=== PATIENT | female | born 2000 | race Native Hawaiian/Other Pacific Islander ===

== ENCOUNTER 2021-07-24 10:55 | Inpatient (IN) | payer SELFPAY ==
[2021-07-24] MEDS ORDERED: LACTATED RINGERS 1,000 ML IV ONE (13:00)
--- NOTE | 2021-07-24 15:43 | History and Physical Report ---
History of Present Illness Date of examination: 07/24/21 Date of admission: 07/24/21 Chief complaint: Contractions History of present illness: 21 year old female presents to L&D with regular contractions and bloody show. Patient received care at [facility] and records are available. LMP 11/02/20. EDC 07/31/21 (based on 8 week, 4 day US). Patient has had an uncomplicated course except for hyperemesis early in . labs are as follows: O+, antibody screen negative, rubella immune, hepatitis B surface antigen nonreactive, HIV negative, RPR nonreactive, gonorrhea negative, chlamydia negative, pap smear negative, quad screen negative, GBS negative, 1 hour sugar test normal. 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 denies: smoking, alcohol abuse, prescription drug abuse, IV drug use - Obstetrical History Expected Date of Delivery: 07/31/21 Actual Gestation: 39 Week(s) 0 Day(s) : 2 Para: 1 Hx # Term Pregnancies: 1 Number of Pregnancies: 0 Spontaneous Abortions: 0 Induced : 0 Number of Living Children: 1 Medications and Allergies Allergies Allergy/AdvReac Type Severity Reaction Status Date / Time No Known Allergies Allergy Verified 07/24/21 11:43 Home Medications Medication Instructions Recorded Confirmed Last Taken Type One Daily Tablet 1 tab PO DAILY 07/24/21 07/24/21 1 Day Ago History ~07/23/21 Active Meds: Active Medications Acetaminophen (Acetaminophen 325 Mg Tab) 650 mg PO Q4H PRN PRN Reason: Pain, Mild (1-3) Carboprost Tromethamine (Carboprost Tromethamine 250 Mcg/1 Ml Inj) 250 mcg IM ONCE PRN PRN Reason: Uterine Bleeding Ephedrine Sulfate (Ephedrine Sulfate 50 Mg/1 Ml Inj) 10 mg IV Q2M PRN PRN Reason: Hypotension Fentanyl (Fentanyl 100 Mcg/2 Ml Inj) 100 mcg IV Q2H PRN PRN Reason: Pain,Severe (7-10) LABOR PAIN Lactated Ringer's (Lactated Ringers) 1,000 mls @ 125 mls/hr IV DIRECT YAMILKA Oxytocin/Sodium Chloride (Pitocin/Ns 30 Unit/500ml) 30 units in 500 mls @ 40 mls/hr IV TITR YAMILKA; Protocol Lidocaine (Lidocaine (2%) 20 Mg/1 Ml Vial 20 Ml Mdv) 20 ml INFILTRATI ONCE ONE Stop: 07/24/21 16:31 Loperamide HCl (Loperamide 2 Mg Cap) 2 mg PO ONCE PRN PRN Reason: give with Hemabate Methylergonovine Maleate (Methylergonovine Maleate 0.2 Mg/Ml Vial) 0.2 mg IM ONCE PRN PRN Reason: Uterine Bleeding Mineral Oil (Mineral Oil 30 Ml Oral Liqd) 30 ml PO QHS PRN PRN Reason: Constipation Misoprostol (Misoprostol 200 Mcg Tab) 800 mcg VT ONCE PRN PRN Reason: Uterine Bleeding Nalbuphine HCl (Nalbuphine 10 Mg/1 Ml Inj) 10 mg IV Q2H PRN PRN Reason: Pain, Moderate (4-6) Oxytocin (Oxytocin 10 Unit/1 Ml Inj) 10 unit IM ONCE PRN PRN Reason: Uterine Bleeding Terbutaline Sulfate (Terbutaline 1 Mg/1 Ml Inj) 0.25 mg SUB-Q ONCE PRN PRN Reason: Hyperstimulation/Hypertonicity Review of Systems All systems: negative (contractions and bloody show) - Vital Signs Vital signs: Vital Signs Temp Pulse Resp BP Pulse Ox 99.1 F 95 H 14 129/64 100 07/24/21 11:30 07/24/21 11:30 07/24/21 11:30 07/24/21 11:30 07/24/21 11:30 Temp Pulse Resp BP Pulse Ox 99.1 F 99 H 14 129/64 98 07/24/21 11:30 07/24/21 15:32 07/24/21 11:30 07/24/21 11:31 07/24/21 15:32 US shows BPP 8/8, AZRA of 10.6 cm, cephalic presentation, and no lifting or separation of placenta seen. - Physical Exam Abdomen: Positive: normal appearance, soft. Negative: distention, tenderness, guarding, rigidity Genitourinary (Female): Positive: normal external genitalia, normal perenium. Negative: perineal/vulvar lesions Vagina: Positive: other (small amount of bloody show seen) Uterus: Positive: enlarged. Negative: tender Anus/Rectum: Positive: normal perianal skin Extremities: Negative: tenderness, edema - Obstetrical FHR: other FHR comments: FHR baseline 150 with moderate to marked FHR variability and accelerations and occasional brief variable FHR decleration with rapid return to baseline. Cervical Dilatation: 3 (changed from 1 cm to 3 cm in triage) Cervical Effacement Percentage: 80 station: -3 Uterine Contraction Pattern: Regular Uterine Contraction Intensity: Moderate Results All other labs normal. Assessment and Plan A: at 39 weeks gestation. Labor. Variable FHR deceleration. GBS negative. P: Admit. Continuous EFM. Epidural if desired after 4 cm. Anticipate vaginal .
[2021-07-24 15:52] LABS: Hematocrit 35.3 % (30.3-42.9); Hemoglobin 11.8 gm/dl (10.1-14.3); Mean Corpuscular HGB Conc 34 % (30-34); Mean Corpuscular Volume 86 fl (79-97); Platelet Count 265 K/mm3 (140-440); Red Cell Distribution Width 14.1 % (13.2-15.2)
[2021-07-24] MEDS ORDERED: OXYTOCIN DRIP 30 UNITS/500 ML BAG IV SCH ×2 (16:00→19:00)
[2021-07-24] MEDS ORDERED: miSOPROStol 200 MCG TAB PR PRN (16:00)
[2021-07-24] MEDS ORDERED: OXYTOCIN 10 UNIT/1 ML INJ IM PRN (16:00)
[2021-07-24] MEDS ORDERED: MINERAL OIL 30 ML ORAL LIQD PO PRN (16:00)
[2021-07-24] MEDS ORDERED: fentaNYL 100 MCG/2 ML INJ IV PRN (16:00)
[2021-07-24] MEDS ORDERED: LACTATED RINGERS 1,000 ML IV SCH (16:00)
[2021-07-24] MEDS ORDERED: CARBOPROST TROMETHAMINE 250 MCG/1 ML INJ IM PRN (16:00)
[2021-07-24] MEDS ORDERED: METHYLERGONOVINE MALEATE 0.2 MG/ML VIAL IM PRN (16:00)
[2021-07-24] MEDS ORDERED: TERBUTALINE 1 MG/1 ML INJ SUB-Q PRN (16:00)
[2021-07-24] MEDS ORDERED: LOPERAMIDE 2 MG CAP PO PRN (16:00)
[2021-07-24] MEDS ORDERED: ePHEDrine SULFATE 50 MG/1 ML INJ IV PRN (16:00)
[2021-07-24] MEDS ORDERED: NalbUPHINE 10 MG/1 ML INJ IV PRN (16:00)
[2021-07-24] MEDS ORDERED: ACETAMINOPHEN 325 MG TAB PO PRN (16:00)
--- NOTE | 2021-07-24 16:21 | Ultrasound Report ---
ULTRASOUND BIOPHYSICAL PROFILE AND ULTRASOUND OB LIMITED, 07/24/2021 INDICATION / CLINICAL INFORMATION: Evaluate well-being. COMPARISON: No relevant prior studies are available for comparison FINDINGS: BREATHING MOVEMENT = 2 GROSS BODY MOVEMENT = 2 TONE = 2 QUALITATIVE AMNIOTIC FLUID VOLUME = 2 TOTAL BIOPHYSICAL SCORE = 88 AMNIOTIC FLUID INDEX (cm) = 10.6 PRESENTATION: Cephalic. HEART RATE (beats per minute): 135 Placenta is fundal and grade 2. IMPRESSION: 1. biophysical profile = 02/13 Signer Name: Ximena Abdi MD Signed: 07/24/2021 4:17 PM Workstation Name: [id number]
[2021-07-24] MEDS ORDERED: LIDOCAINE (2%) 20 MG/1 ML VIAL 20 ML MDV INFILTRATI ONE (16:30)
--- NOTE | 2021-07-24 18:53 | Event Note ---
Date: 07/24/21 SVE /-3. Pitocin ordered for augmentation of labor.
[2021-07-24] MEDS ORDERED: NALOXONE 2 MG/2 ML INJ IV PRN (21:05)
--- NOTE | 2021-07-24 21:05 | Anesthesia Consultation ---
Anesthesia Consult and Med Hx Date of service: 07/24/21 - Airway Anesthetic Teeth Evaluation: Poor ROM Head & Neck: Adequate Mental/Hyoid Distance: Adequate Mallampati Class: Class II Intubation Access Assessment: Good - Pulmonary Exam CTA: Yes - Cardiac Exam Cardiac Exam: RRR - Pre-Operative Health Status ASA Pre-Surgery Classification: ASA2 Proposed Anesthetic Plan: Epidural - Pulmonary Hx Smoking: No Hx Asthma: No Hx Respiratory Symptoms: No SOB: No COPD: No Home Oxygen Therapy: No Hx Pneumonia: No Hx Sleep Apnea: No - Cardiovascular System Hx Hypertension: No Hx Coronary Artery Disease: No Hx Heart Attack/AMI: No Hx Angina: No Hx Percutaneous Transluminal Coronary Angioplasty (PTCA): No Hx Cardia Arrhythmia: No Hx Pacemaker: No Hx Internal Defibrillator: No Hx Valvular Heart Disease: No Hx Heart Murmur: No Hx Peripheral Vascular Disease: No - Central Nervous System Hx Neuromuscular Disorder: No Hx Seizures: No CVA: No Hx Back Pain: No Hx Psychiatric Problems: No - Gastrointestinal Hx Ulcer: No Hx Gastroesophageal Reflux Disease: No - Endocrine Hx Renal Disease: No Hx End Stage Renal Disease: No Hx Cirrhosis: No Hx Liver Disease: No Hx Insulin Dependent Diabetes: No Hx Non-Insulin Dependent Diabetes: No Hx Thyroid Disease: No Hx Hypothyroidism: No Hx Hyperthyroidism: No - Hematic Hx Anemia: No Hx Sickle Cell Disease: No - Other Systems Hx Alcohol Use: No Hx Substance Use: No Hx Cancer: No Hx Obesity: No
--- NOTE | 2021-07-24 21:36 | Progress Note ---
Labor Epidural - Labor Epidural Start Time: 21:09 Stop Time: 21:23 Performed by:: VIOLET CLEMENT Procedure: Patient is requesting epidural for labor pain. H&P and labs reviewed. Procedure explained, questions answered, consent obtained. Patient placed in sitting position with monitors applied. Timeout performed immediately before start of procedure. Prep/drape in usual sterile fashion. Skin localized 3 mL 1% lidocaine at L[3]-L[4] interspace. 17-gauge Touhy epidural needle advanced to RAMON with saline at [7] cm. No blood/CSF noted via epidural needle. Epidural catheter advanced to [10] cm. Negative aspiration for blood and CSF via catheter, negative response to test dose 3 ml 1.5% lidocaine w/ epi. Sterile dressing applied followed by tape reinforcement. Patient tolerated procedure well. No immediate complications noted.
[2021-07-24] MEDS ORDERED: fentaNYL-BUPIV 2 MCG/ML-0.125% 200 MCG/100 ML BAG EPIDURAL SCH (22:00)
[2021-07-24] MEDS: ePHEDrine SULFATE 50 MG/1 ML INJ IV PRN ×2 (22:09→23:05)
[2021-07-24] MEDS ORDERED: miSOPROStol 100 MCG TAB ONE (23:31)
[2021-07-25] MEDS ORDERED: WITCH HAZEL/ GLYCERIN PAD TP PRN (00:57)
[2021-07-25] MEDS ORDERED: HYDROcodone/ACETAMINOPHEN 5-325 MG TAB PO PRN (00:57)
[2021-07-25] MEDS ORDERED: LANOLIN/ZINC/DIMETHICONE (LANSINOH) 7 GM TP PRN (00:57)
[2021-07-25] MEDS ORDERED: BENZOCAINE/MENTHOL 20/0.5% TOP SPRAY 56 GM TP PRN (00:57)
[2021-07-25] MEDS ORDERED: MAGNESIUM HYDROXIDE (MOM) ORAL LIQD UDC PO PRN (00:57)
[2021-07-25] MEDS ORDERED: diphenhydrAMINE 25 MG CAP PO PRN (00:57)
--- NOTE | 2021-07-25 01:04 | Procedure Note ---
OB Delivery Note - Delivery Date of Delivery: 07/25/21 Surgeon: MEHDI HAGEN Estimated blood loss: other (250 cc) - Vaginal Delivery presentation: vertex Delivery position: OA Intrapartum events: meconium Delivery induction: none Delivery augmentation: pitocin Delivery monitor: external FHT, external uterine Route of delivery: Delivery placenta: spontaneous Delivery cord: 3 umbilical vessels Episiotomy: none Delivery laceration: none Anesthesia: epidural Delivery comments: Spontaneous vaginal delivery at 00:39 of liveborn female weighing 6 lb. 2 oz. over intact perineum with apgars of 8/9. Epidural anesthesia. Meconium stained amniotic fluid; NICU attended delivery due to meconium stained fluid. was atraumatic; no nuchal cord. Baby was placed skin to skin with mom immediately after delivery where she was dried with warm blankets and suctioned with bulb syringe. Spontaneous cry and respirations. 3 vessel cord double clamped and cut and baby taken to radiant warmer for further suctioning. Cord blood obtained. Spontaneous delivery of intact placenta with trailing membranes. EBL 250 cc. Pitocin to IV fluids after delivery of placenta. Cytotec 800 mcg given rectally. Fundus firm and midline at 2 FB below umbilicus. No lacerations noted. Vaginal sweep negative. Sponge count correct. Mother and baby stable in birthing room.
[2021-07-25] MEDS: DOCUSATE SODIUM 100 MG CAP PO SCH ×2 (09:28→22:11)
[2021-07-25] MEDS: IBUPROFEN 600 MG TAB PO SCH ×2 (09:28→22:11)
[2021-07-25] MEDS ORDERED: FERROUS SULFATE 325 MG TAB PO SCH (10:00)
[2021-07-25] MEDS ORDERED: ONDANSETRON 4 MG/2 ML INJ IV PRN (13:07)
[2021-07-25 14:32] LABS: Hematocrit 33.9 % (30.3-42.9); Hemoglobin 11.2 gm/dl (10.1-14.3)
--- NOTE | 2021-07-25 15:06 | Post Anesthesia Evaluation ---
- Post Anesthesia Evaluation Patient Participated: Yes Airway Patent: Yes Stable Respiratory Function: Yes Nausea/Vomiting: No Temp > 96.8F: Yes Pain Manageable: Yes Adequeate Hydration: Yes Anesthesia Complications: No Block Receding Appropriately: Yes Patient on Ventilator: No
[2021-07-26] MEDS: IBUPROFEN 600 MG TAB PO SCH (04:02)
--- NOTE | 2021-07-26 08:24 | Progress Note ---
Assessment and Plan A: S/P P: D/C home today Subjective - Subjective Date of service: 07/26/21 Principal diagnosis: s/p Patient reports: appetite normal, voiding normally, pain well controlled, ambulating normally : doing well, bottle feeding Objective - Vital Signs Latest vital signs: Vital Signs Temp Pulse Resp BP BP Pulse Ox Pulse Ox 07/26/21 04:02 18 07/26/21 00:17 98.1 F 75 20 106/53 96 07/25/21 22:11 18 07/25/21 20:00 99 07/25/21 16:50 98.3 F 68 20 101/66 99 07/25/21 12:00 98.3 F 61 20 110/43 98 07/25/21 09:49 98 07/25/21 08:55 98.3 F 72 20 102/70 97 Intake and Output 07/25/21 07/26/21 07/26/21 22:59 06:59 14:59 Intake Total 440 600 Output Total 900 Balance -460 600 Intake: Oral 440 240 Intake, Free Water 360 Output: Urine 900 Void 900 Other: Total, Intake Amount 120 240 Total, Output Amount 900 # Voids Void 1 1 - Exam Breasts: Present: normal Abdomen: Present: normal appearance, soft, normal bowel sounds Vulva: both: normal Uterus: Present: normal, firm, fundal height below umbilicus Extremities: Present: normal
--- NOTE | 2021-07-26 09:05 | Discharge Summary ---
Providers - Providers Date of Admission: 07/24/21 15:20 Date of discharge: 07/26/21 Attending physician: DAQUAN COFFMAN Primary care physician: [facility] Hospitalization Reason for admission: active labor, IUP at term Delivery: Episiotomy: none Laceration: none Other procedures: none complications: none Discharge diagnosis: IUP at term delivered [place] baby: female Hospital course: Pt presented to [facility] in active labor and had a w/o pp complications. See H&p, delivery summary, and pp notes. Condition at discharge: Stable Disposition: HOME / SELF CARE / HOMELESS Plan - Discharge Medications Prescriptions: Ibuprofen [Motrin 600 MG tab] 600 mg PO Q6HR PRN #30 tablet PRN Reason: Menstrual Cramps - Provider Discharge Summary Activity: routine, no sex for 6 weeks, no heavy lifting 4 weeks, no strenuous exercise Diet: routine Instructions: routine Additional instructions: [] Smoking cessation referral if applicable(refer to patient education folder for contact #) [] Refer to [facility]'s [facility] Booklet Call your doctor immediately for: * Fever > 100.5 * Heavy vaginal bleeding ( >1 pad per hour) * Severe persistent headache * Shortness of breath * Reddened, hot, painful area to leg or breast * Drainage or odor from incision. * Keep incision clean and dry at all times and follow doctor's instructions regarding bathing/showering - Follow up plan Follow up: PRIMARY CARE, [Primary Care Provider] - 6 Weeks
[2021-07-26 15:21] VITALS: BP 106/59
== END 2021-07-26 12:40 | disposition home or self-care (01) | DRG 807 ==
LOC: TRG 10:55 → APU 10:56 → TRG 15:32 → LD 16:17 → OB 07-25 05:50
PROVIDERS: ADMIT Obstetrics & Gynecology; ATTEND Obstetrics & Gynecology
PROC: 10E0XZZ Delivery of Products of Conception, External Approach (ICD-10-PCS; principal; 2021-07-25)
PROC: 10907ZC Drainage of Amniotic Fluid, Therapeutic from Products of Conception, Via Natural or Artificial Opening (ICD-10-PCS; 2021-07-25)
PROC: 3E0R3BZ Introduction of Anesthetic Agent into Spinal Canal, Percutaneous Approach (ICD-10-PCS; 2021-07-25)
PROC: 00HU33Z Insertion of Infusion Device into Spinal Canal, Percutaneous Approach (ICD-10-PCS; 2021-07-25)
DX: O77.0 Labor and delivery complicated by meconium in amniotic fluid (principal); Z37.0 Single live birth; O76 Abnormality in fetal heart rate and rhythm complicating labor and delivery; Z3A.39 39 weeks gestation of pregnancy; Z20.822 Contact with and (suspected) exposure to COVID-19
CPT/HCPCS: 36415; 76815; 76819; 85014; 85018; 85027; 86592; 86850; 86900; 86901; G0378; J3490; J2210; J2405; J2590; J7120; U0003